=== PATIENT | male | born 1945 | race Caucasian/White ===

== ENCOUNTER 2020-12-11 07:49 | Inpatient (IN) ==
--- OUTSIDE RECORDS SUMMARY | 2020-12-11 07:51 | External Medical Summary | Continuity of Care Document ---
:1945 Author Name Laura Blair, Provider Address Unavailable Unavailable , Care Team Providers Name Role Phone Dia Coles PA-C Unavailable [email or web address] Hair Blair Unavailable [email or web address] Mouna MANCILLA Unavailable Unavailable Unavailable Unavailable Unavailable Problems Type 2 Diabetes Mellitus - Uncomplicated, Controlled (250.00 ) Asthma (493.90) (J45.909) Diverticulitis of colon (562.11) (K57.32) Pharyngitis (462) (J02.9) Hearing loss (389.9) (H91.90) Esophageal reflux (530.81) (K21.9) Cerumen impaction (380.4) (H61.20) Shortness of breath (786.05) (R06.02) Hypercholesterolemia (272.0) (E78.00) Hyperlipidemia (272.4) (E78.5) Eustachian tube dysfunction (381.81) (H69.80) Functional Status Hearing loss Allergies and Adverse Reactions Albuterol Sulfate HFA AERS (Allergy) [place] ction: Hives Xopenex HFA AERO (Allergy) Medications Pulmicort Flexhaler 180 MCG/ACT Inhalati on Aerosol Powder Breath Activated; INHALE 2 PUFFS, BY MOUTH, TWICE DAILY. RINSE MOUTH AFTER USE. Refills: 0 Ciprofloxacin HCl - 500 MG Oral Tablet; TAKE 1 TABLET EVERY 12 HOURS FOR 10 DAYS. NICHOLAS Coles Start: 01-Mar-2011 Quantity: 20 Refills: 0 metroNIDAZOLE 500 MG Oral Tablet; TAKE 1 TABLET 3 time s daily NICHOLAS Coles Start: 01-Mar-2011 Quantity: 30 Refills: 0 Procedures History of Bladder Surgery Status: Compl eted History of Wrist Surgery Status: Complet ed History of Foot Surgery Status: Complete d Immunizations Influenza 1 On: 15-Aug-2010 16:19 Lot #: [id number], SANOFI PASTEUR Family History Mother Family history of Acute Myocardial Infarction (V17.3) Status : Active Family history of CABG Status: Active Brother Family history of Acute Myocardial Infarction (V17.3) Status : Active Family history of Acute Myocardial Infarction (V17.3) Status : Active Family history of Hypertension (V17.49) Status: Active Father Family history of Cancer Status: Active Plan of Treatment Planned Observations Planned Goals not documented Results No Known Results Results not documented Encounters Appointment; Vascular, Studies SC1 14-May-2019 8:45 Encounter Diagnosis: Problem not documented
--- OUTSIDE RECORDS SUMMARY | 2020-12-11 07:51 | External Medical Summary | Continuity of Care Document ---
:1945 Author Name Laura Blair, Provider Address Unavailable Unavailable , Care Team Providers Name Role Phone Dia Coles PA-C Unavailable [email or web address] Hair Blair Unavailable [email or web address] Mouna MANCILLA Unavailable Unavailable Unavailable Unavailable Unavailable Problems Eustachian tube dysfunction (381.81) (H69.80) Hyperlipidemia (272.4) (E78.5) Hypercholesterolemia (272.0) (E78.00) Cerumen impaction (380.4) (H61.20) Hearing loss (389.9) (H91.90) Pharyngitis (462) (J02.9) Diverticulitis of colon (562.11) (K57.32) Asthma (493.90) (J45.909) Type 2 Diabetes Mellitus - Uncomplicated, Controlled (250.00 ) Shortness of breath (786.05) (R06.02) Esophageal reflux (530.81) (K21.9) Functional Status Hearing loss Allergies and Adverse Reactions Albuterol Sulfate HFA AERS (Allergy) [place] ction: Hives Xopenex HFA AERO (Allergy) Medications metroNIDAZOLE 500 MG Oral Tablet; TAKE 1 TABLET 3 time s daily NICHOLAS Coles Start: 01-Mar-2011 Quantity: 30 Refills: 0 Ciprofloxacin HCl - 500 MG Oral Tablet; TAKE 1 TABLET EVERY 12 HOURS FOR 10 DAYS. NICHOLAS Coles Start: 01-Mar-2011 Quantity: 20 Refills: 0 Pulmicort Flexhaler 180 MCG/ACT Inhalati on Aerosol Powder Breath Activated; INHALE 2 PUFFS, BY MOUTH, TWICE DAILY. RINSE MOUTH AFTER USE. Refills: 0 Procedures History of Bladder Surgery Status: Compl eted History of Wrist Surgery Status: Complet ed History of Foot Surgery Status: Complete d Immunizations Influenza 1 On: 15-Aug-2010 16:19 Lot #: [id number], SANOFI PASTEUR Family History Mother Family history [...]
--- NOTE | 2020-12-11 08:05 | Emergency Department Note ---
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 Stevenson sent him to the hospital to be admitted. He states Dr. Stevenson wants to start him on medications in the hospital for 3 days and then wants to cardiovert him. Home Medications Medication Instructions Recorded Confirmed Type albuterol 2 mcg INHALATION LD 12/11/20 12/11/20 History apixaban [Eliquis] 5 mg PO Q12H 12/11/20 12/11/20 History atorvastatin 80 mg PO HS 12/11/20 12/11/20 History glipizide 5 mg PO BID 12/11/20 12/11/20 History metformin 1,000 mg PO BIDM 12/11/20 12/11/20 History metoprolol succinate 50 mg PO DAILY 12/11/20 12/11/20 History omeprazole 20 mg PO 0600 12/11/20 12/11/20 History Allergies Allergy/AdvReac Type Severity Reaction Status Date / Time No Known Allergies Allergy Mild Unverified 03/27/07 09:44 Past Med/Surg History Medical History (Updated 12/11/20 @ 08:35 by Maurice Cavazos) Atrial flutter HLD (hyperlipidemia) No pertinent family history Surgical History (Updated 12/11/20 @ 08:04 by Maurice Cavazos) No pertinent past surgical history Social History Smoking Status: Never smoker Feels Safe at Home: Yes Review of Systems A total of 10 systems reviewed and were otherwise negative Physical Exam Vital Signs: Vital Signs - 24 hr 12/11/20 07:52 12/11/20 08:04 12/11/20 08:09 Temperature 36.3 C L Temperature Source Oral Pulse Rate 114 H 110 H Respiratory Rate 20 25 H Blood Pressure 150/85 H 132/80 Blood Pressure Blanca n 106 97 Pulse Oximetry 96 97 Oxygen Delivery Me thod Room Air Room Air Sepsis Recent Feve r Within 48 Hours No Sepsis New/Unexpla ined Change in Men marimar Status No Sepsis Action Take n by Nursing No Action Required Physical Exam: Physical Exam GENERAL: He is oriented to person, place, and time. He appears well-developed and well-nourished. He does not appear distressed. HENT: Exam performed. - Head: Normocephalic and atraumatic. - Right Ear: External ear normal. No mastoid tenderness. - Left Ear: External ear normal. No mastoid tenderness. - Mouth/Throat: The oropharynx is clear and moist. No trismus in the jaw. No dental abscesses or uvula swelling. No oropharyngeal exudate or tonsillar abscesses. EYES: Conjunctivae and EOM are normal. Pupils are equal, round, and reactive to light. Right eye exhibits no discharge. Left eye exhibits no discharge. No scleral icterus. NECK: Normal range of motion. Neck supple. No JVD present. No spinous process tenderness present. No carotid bruit present. No rigidity. No tracheal deviation and normal range of motion present. No Brudzinski's sign and no Kernig's sign noted. CV: Normal rate, irregular rhythm, normal heart sounds and intact distal pulses. There is no peripheral edema. Palpable radial pulses bue. PULM/CHEST: Effort normal and breath sounds normal. No respiratory distress. No stridor. He has no wheezes. He has no rales. - Chest Wall: He exhibits no tenderness. ABD: The abdomen is soft. Bowel sounds are normal. He has no distension. No mass is present. There is no tenderness. There is no rebound, no guarding, no Lindsay's sign and no tenderness at McBurney's point. Rovsig negative. MUSC/SKEL: Normal range of motion. There is no peripheral edema, tenderness or deformity. LYMPH: No cervical adenopathy. NEURO: He is alert and oriented to person, place, and time. He has normal strength. No cranial nerve deficit or sensory deficit. Coordination and gait normal. GCS eye subscore is 4. GCS verbal subscore is 5. GCS motor subscore is 6. Cerebellar tests wnl. SKIN: Skin is warm and dry. He is not diaphoretic. PSYCH: He has a normal mood and affect. Behavior is normal. Judgment and thought content normal. Course Course 0756: The patient was evaluated in room A10. A complete history and physical exam was performed. Cardiac monitoring: An order was placed for continuous cardiac monitoring. The monitor shows a rate of 110 with atrial flutter rhythm 0832: Vital signs stable. Patient refusing chest x-ray. Discussed with Ward Hu states to admit to Dr. Mcdonough Medical Decision Making Laboratory Data Result diagrams: 12/11/20 08:07 12/11/20 08:07 Lab Results 12/11/20 Range/Units 08:07 WBC 8.39 (4.8-10.8) K/uL RBC 4.61 L (4.7-6.1) M/uL Hgb 12.5 L (14.0-18.0) g/dL Hct 39.6 L (42-52) % MCV 85.9 (80-100) fL MCH 27.1 (25-34) pg MCHC 31.6 L (32-36) g/dL RDW Std Deviation 54.3 H (36.4-46.3) fL RDW Coeff of Levi 17.4 H (11.5-14.5) % Plt Count 259 (130-400) K/uL MPV 9.7 (7.4-10.4) fL Immature Gran % (Auto) 0.1 % Neut % (Auto) 58.1 % Lymph % (Auto) 30.2 % [place] % (Auto) 7.6 % Eos % (Auto) 3.6 % Baso % (Auto) 0.4 % Neut # (Auto) 4.88 (1.4-6.5) K/uL Lymph # (Auto) 2.53 (1.2-3.4) K/uL [place] # (Auto) 0.64 H (0.11-0.59) K/uL Eos # (Auto) 0.30 (0-0.5) K/uL Baso # (Auto) 0.03 (0-0.2) K/uL Immature Gran # (Auto) 0.01 (0.00-0.02) K/uL ECG Data Indication: palpitations Rate (beats per minute): 109 Rhythm: atrial flutter Findings: no ST depression, no ST elevation and no prolonged QT MDM Narrative 0756: The patient was evaluated in room A10. A complete history and physical exam was performed. Cardiac monitoring: An order was placed for continuous cardiac monitoring. The monitor shows a rate of 110 with atrial flutter rhythm 0832: Vital signs stable. Patient refusing chest x-ray. Discussed with Ward Hu states to admit to Dr. Mcdonough Impression & Plan Atrial flutter Discharge Plan Visit Data Chief Complaint: Cardiac Assessment Stated Complaint: HEART FLUTTER,DOC REF ED Provider: Maurice Cavazos Discharge Problem: Atrial flutter Patient Disposition: Admitted As Inpatient Forms Stand Alone Forms: [facility] Prescriptions Prescriptions: No Action atorvastatin 80 mg tablet 80 mg PO HS RF: 0 metoprolol succinate 50 mg tablet extended release 24 hr 50 mg PO DAILY RF: 0 omeprazole 20 mg capsule,delayed release(DR/EC) 20 mg PO 0600 RF: 0 albuterol 90 mcg/actuation Aerosol 2 mcg INHALATION LD RF: 0 metformin 500 mg tablet extended release 24 hr 1,000 mg PO BIDM RF: 0 glipizide 5 mg tablet 5 mg PO BID RF: 0 Eliquis 5 mg tablet 5 mg PO Q12H RF: 0 Referrals Referrals: Jaylen Cain MD [Primary Care Provider] - Discharge Problem: Atrial flutter Qualifiers: Atrial flutter type: unspecified Qualified Code(s): I48.92 - Unspecified atrial flutter
[2020-12-11 08:17] LABS: Basophils # (auto) 0.03 K/uL (0-0.2); Basophils % (auto) 0.4 %; Eosinophils % (auto) 3.6 %; Hematocrit (blood only) 39.6 % (42-52); Hemoglobin 12.5 g/dL (14.0-18.0); Immature Granulocytes # (auto) 0.01 K/uL (0.00-0.02); Immature Granulocytes % (auto) 0.1 %; Lymphocytes # (auto) 2.53 K/uL (1.2-3.4); Lymphocytes % (auto) 30.2 %; Mean Corpuscular Hemoglobin 27.1 pg (25-34); Mean Corpuscular Hgb Conc 31.6 g/dL (32-36); Mean Corpuscular Volume 85.9 fL (80-100); Mean Platelet Volume 9.7 fL (7.4-10.4); Monocytes # (auto) 0.64 K/uL (0.11-0.59); Monocytes % (auto) 7.6 %; Neutrophils # (auto) 4.88 K/uL (1.4-6.5); Neutrophils % (auto) 58.1 %; Platelet Count 259 K/uL (130-400); RDW Coefficient of Variation 17.4 % (11.5-14.5); RDW Standard Deviation 54.3 fL (36.4-46.3); Red Blood Count 4.61 M/uL (4.7-6.1); White Blood Count 8.39 K/uL (4.8-10.8)
[2020-12-11 08:38] LABS: BUN Creatinine Ratio 19.2 (10-20); Blood Urea Nitrogen 20 mg/dl (7-18); Calcium 10.2 mg/dl (8.5-10.1); Carbon Dioxide 24 mmol/L (21-32); Chloride 111 mmol/L (98-107); Creatinine Clr Calc Pharmacy 65.7 ml/min; Est GFR (African American) 78.1; Est GFR (Non-African American) 67.4; Glucose 176 mg/dl (70-99); Lipase 70 U/L (73-393); Potassium 3.8 mmol/L (3.5-5.1); Sodium 143 mmol/L (136-145)
[2020-12-11 08:43] LABS: Troponin I < 0.015 ng/ml (0-0.045)
[2020-12-11] MEDS ORDERED: POTASSIUM CHLORIDE CRTAB 20 MEQ TABCR PO STA (08:50)
--- NOTE | 2020-12-11 09:04 | History & Physical Report ---
Date of Service December 11, 2020 Assessment & Plan (1) BOWMAN (dyspnea on exertion): (2) CAD (coronary artery disease): (3) COPD (chronic obstructive pulmonary disease): (4) T2DM (type 2 diabetes mellitus): (5) HTN (hypertension): Mr. Alfonso presents for admission for planned Sotalol loading and possible DC cardioversion due to symptomatic atrial flutter with RVR will admit to tele and initiate Sotalol 80mg po bid continues telemetry monitoring along with daily ECG's to follow QT interval all other outpatient meds will be continued including Eliquis (6) Atrial flutter with rapid ventricular response: History of Present Illness Chief Complaint: symptomatic atrial fibrillation with rvr Primary Care Provider: Jaylen Cain MD Mr. Alfonso is a very pleasant 75-year-old gentleman who follows with myself as an outpatient for CAD and PAF. Since his last evaluation with me in October his dyspnea has been unchanged. He did undergo to dobutamine stress echocardiogram which came back nonischemic. He has been compliant with all his meds. He continues to deny chest pain, palpitations, lightheadedness, dizziness or syncope. He has never missed a dose of his Eliquis. PAST MEDICAL HISTORY: 1.Coronary artery disease status post CABG x 3 with a ZAMARRIPA to the LAD, vein graft to the obtuse marginal and vein graft to the posterior descending artery. 2.Postoperative atrial fibrillation status post cardioversion. 3.Paroxysmal atrial flutter status post cardioversion. 4.Hypertension Allergies Allergy/AdvReac Type Severity Reaction Status Date / Time No Known Allergies Allergy Mild Unverified 12/11/20 08:37 Home Medications Medication Instructions Recorded Confirmed Type albuterol sulfate [ProAir HFA] 1 inh INHALATION QID PRN 12/11/20 12/11/20 History apixaban [Eliquis] 5 mg PO Q12H 12/11/20 12/11/20 History aspirin [Aspir-81] 81 mg PO DAILY 12/11/20 12/11/20 History atorvastatin 80 mg PO HS 12/11/20 12/11/20 History glipizide 5 mg PO BID 12/11/20 12/11/20 History metformin 1,000 mg PO BIDM 12/11/20 12/11/20 History metoprolol succinate 50 mg PO DAILY 12/11/20 12/11/20 History omeprazole 20 mg PO 0600 12/11/20 12/11/20 History Past Med/Surg History Medical History (Updated 12/12/20 @ 10:34 by Noah Stevenson DO) Atrial flutter CAD (coronary artery disease) status post CABG x 3 with a ZAMARRIPA to the LAD, vein graft to the obtuse marginal and vein graft to the posterior descending artery. COPD (chronic obstructive pulmonary disease) Diabetic peripheral angiopathy GERD (gastroesophageal reflux disease) HLD (hyperlipidemia) HTN (hypertension) PAF (paroxysmal atrial fibrillation) T2DM (type 2 diabetes mellitus) Surgical History History of cardioversion History of colonoscopy History of coronary artery bypass graft x 3 CABG x 3 with a ZAMARRIPA to the LAD, vein graft to the obtuse marginal and vein graft to the posterior descending artery. History of cystoscopy History of foot surgery R History of meniscectomy of right knee Family History Father , 76 Cancer Brother Myocardial infarction, Onset Age: 46 Mother CHF (congestive heart failure) @ 88 Social History Smoking Status: Former smoker Tobacco Type: Cigarettes and Cigars Years Smoked: 15; Smoking End Date: 1989; Hx Alcohol Use: No Hx Substance Use: No Preferred Language: German Communication Ability: Effective Packing Inspector Required: No Beliefs That Will Affect Care: None marital status: Current Living Situation: Spouse Other Information That Helps Us Care for You: No Feels Safe at Home: Yes Safety Concerns: Feels Safe At This Time Assistive Devices: None Assistive Devices Comment: Hearing aids not with patient Review of Systems Review of Systems: All systems reviewed & are unremarkable except as noted in HPI & below Physical Exam Physical Exam: General: Awake, alert and oriented x 3. No acute distress. HEENT: Normocephalic, atraumatic. Pupils equal, round and reactive to light and accommodation. Extraocular muscles are intact. Anicteric sclera. Moist mucous membranes. Neck: No JVD. No bruit. Cardiovascular: irregularly irregular, unable to appreciate murmur, rub or gallop. Pulmonary: Clear to auscultation bilaterally. No rales, rhonchi, or wheezing. Abdomen: Bowel sounds x 4, soft. No rebound, guarding or tenderness. No organomegaly. Extremities: No clubbing, cyanosis or edema. +2 pedal pulses bilaterally. Skin: Warm and dry. Results & Data Results & Data ([facility]) Vital Signs (Past 12 Hours) Vital Signs Temp Pulse Resp BP Pulse Ox 12/11/20 08:31 108 H 20 12/11/20 08:30 100 H 23 140/84 12/11/20 08:09 110 H 25 H 132/80 12/11/20 08:04 97 12/11/20 07:52 36.3 C L 114 H 20 150/85 H 96 Laboratory Results - last 24 hr 12/11/20 12/11/20 12/11/20 08:07 08:07 08:07 WBC 8.39 RBC 4.61 L Hgb 12.5 L Hct 39.6 L MCV 85.9 MCH 27.1 MCHC 31.6 L RDW Std Deviation 54.3 H RDW Coeff of Levi 17.4 H Plt Count 259 MPV 9.7 Immature Gran % (Auto) 0.1 Neut % (Auto) 58.1 Lymph % (Auto) 30.2 [place] % (Auto) 7.6 Eos % (Auto) 3.6 Baso % (Auto) 0.4 Neut # (Auto) 4.88 Lymph # (Auto) 2.53 [place] # (Auto) 0.64 H Eos # (Auto) 0.30 Baso # (Auto) 0.03 Immature Gran # (Auto) 0.01 Sodium 143 Potassium 3.8 Chloride 111 H Carbon Dioxide 24 Anion Gap 7.0 BUN 20 H Creatinine 1.06 Est Cr Clr Drug Dosing 65.7 Est GFR ( Amer) 78.1 Est GFR (Non-Af Amer) 67.4 BUN/Creatinine Ratio 19.2 Glucose 176 H Calcium 10.2 H Magnesium 1.8 Troponin I < 0.015 Lipase 70 L TSH 1.910
[2020-12-11 09:16] LABS: Magnesium 1.8 mg/dl (1.8-2.4); Thyroid Stimulating Hormone 1.91 uIu/ml (0.300-4.500)
--- NOTE | 2020-12-11 10:08 | Electrocardiogram Report ---
Test Reason : Blood Pressure : / mmHG Vent. Rate : 109 BPM Atrial Rate : 264 BPM P-R Int : 000 ms QRS Dur : 098 ms QT Int : 330 ms P-R-T Axes : 085 038 083 degrees QTc Int : 444 ms Atrial flutter with variable A-V block Nonspecific ST and T wave abnormality Abnormal ECG When compared with ECG of 07-APR-2018 08:37, Atrial flutter has replaced Sinus rhythm Vent. rate has increased BY 40 BPM Nonspecific T wave abnormality now evident in Lateral leads Confirmed by Angelo Mcgowan ([id number]) on 12/11/2020 10:08:05 AM Referred By: Noah Stevenson Confirmed By:Angelo Mcgowan
[2020-12-11] MEDS ORDERED: GLUCOSE 40% GEL 15 GM TUBE PO PRN (10:31)
[2020-12-11] MEDS ORDERED: MAGNESIUM HYDROXIDE SUSP 30 ML UDC PO PRN (10:31)
[2020-12-11] MEDS ORDERED: CARBOHYDRATES FOR HYPOGLYCEMIA PO PRN (10:31)
[2020-12-11] MEDS ORDERED: DEXTROSE 50% 50 ML SYRINGE IV PRN (10:31)
[2020-12-11] MEDS ORDERED: ONDANSETRON INJ 2 MG/ML 2 ML VIAL IV PRN (10:31)
[2020-12-11] MEDS ORDERED: GLUCOSE 10 TABS/TUBE PO PRN (10:31)
[2020-12-11] MEDS ORDERED: ACETAMINOPHEN 325 MG TAB PO PRN (10:31)
[2020-12-11] MEDS ORDERED: POLYETHYLENE (MIRALAX) 17 GM PACK PO PRN (10:31)
[2020-12-11] MEDS ORDERED: GLUCAGON FOR INJ 1 MG VIAL SQ PRN (10:31)
[2020-12-11] MEDS ORDERED: ALUMINUM/MAGNESIUM SUSP 30 ML UDC PO PRN (10:31)
[2020-12-11] MEDS ORDERED: ALBUTEROL HFA 8 GM INHALER INH PRN (10:45)
[2020-12-11] MEDS: POTASSIUM CHLORIDE CRTAB 20 MEQ TABCR PO SCH (11:16)
[2020-12-11] MEDS: SOTALOL HCL 80 MG TAB PO SCH ×2 (11:16→20:05)
[2020-12-11] MEDS: INSULIN GLARGINE SOLOSTAR 100 UNITS/ML 3 ML PEN SC SCH ×2 (11:49→20:58)
[2020-12-11] MEDS: INSULIN ASPART 100 UNITS/ML 3 ML PEN SC SCH ×3 (11:49→20:58)
[2020-12-11] MEDS: APIXABAN 5 MG TABLET PO SCH (20:05)
[2020-12-11] MEDS: ATORVASTATIN 40 MG TAB PO SCH (20:05)
[2020-12-12] MEDS ORDERED: PANTOprazole 40 MG TAB PO SCH ×2 (06:00→10:20)
[2020-12-12 08:04] LABS: Estimated Average Glucose 177 mg/dl; Hemoglobin A1C 7.8 % (4.5-5.6)
[2020-12-12] MEDS: INSULIN ASPART 100 UNITS/ML 3 ML PEN SC SCH (08:10)
[2020-12-12] MEDS: SOTALOL HCL 80 MG TAB PO SCH ×2 (08:40→19:43)
[2020-12-12] MEDS: POTASSIUM CHLORIDE CRTAB 20 MEQ TABCR PO SCH (08:40)
[2020-12-12] MEDS: ASPIRIN 81 MG ECTAB PO SCH (08:40)
[2020-12-12] MEDS: APIXABAN 5 MG TABLET PO SCH ×2 (08:40→19:42)
[2020-12-12] MEDS: INSULIN GLARGINE SOLOSTAR 100 UNITS/ML 3 ML PEN SC SCH (09:43)
--- NOTE | 2020-12-12 10:30 | Electrocardiogram Report ---
Test Reason : Blood Pressure : / mmHG Vent. Rate : 087 BPM Atrial Rate : 250 BPM P-R Int : 000 ms QRS Dur : 082 ms QT Int : 376 ms P-R-T Axes : 268 052 082 degrees QTc Int : 452 ms Atrial flutter with variable A-V block Diffuse Nonspecific T wave abnormality Abnormal ECG When compared with ECG of 11-DEC-2020 08:01, HR has decreased BY 21 BPM Confirmed by Angelo Mcgowan ([id number]) on 12/12/2020 10:30:03 AM Referred By: Noah Stevenson Confirmed By:Angelo Mcgowan
--- NOTE | 2020-12-12 10:35 | Cardiology Progress Note ---
Date of Service December 12, 2020 Assessment & Plan (1) BOWMAN (dyspnea on exertion): (2) CAD (coronary artery disease): (3) COPD (chronic obstructive pulmonary disease): (4) T2DM (type 2 diabetes mellitus): (5) HTN (hypertension): Mr. Alfonso presents for admission for planned Sotalol loading and possible DC cardioversion due to symptomatic atrial flutter with RVR tolerating sotalol well. No significant ventricular ectopy on telemetry monitoring. QTC stable at 452 ms. Continue sotalol loading. We will plan for DC cardioversion in the a.m. N.p.o. after midnight. all other outpatient meds will be continued including Eliquis (6) Atrial flutter with rapid ventricular response: Admission and Anticipated Discharge Date Admission Date: December 11, 2020 Subjective Patient seen and examined, chart reviewed. No events overnight. He has been refusing Accu-Cheks. Denies chest pain, shortness of breath, palpitations, lightheadedness, dizziness or syncope. Telemetry reviewed: Atrial flutter at 3-1 Review of Systems Review of Systems: All systems reviewed & are unremarkable except as noted in HPI & below Physical Exam Physical Exam: General: Awake, alert and oriented x 3. No acute distress. HEENT: Normocephalic, atraumatic. Pupils equal, round and reactive to light and accommodation. Extraocular muscles are intact. Anicteric sclera. Moist mucous membranes. Neck: No JVD. No bruit. Cardiovascular: irregularly irregular, unable to appreciate murmur, rub or gallop. Pulmonary: Clear to auscultation bilaterally. No rales, rhonchi, or wheezing. Abdomen: Bowel sounds x 4, soft. No rebound, guarding or tenderness. No organomegaly. Extremities: No clubbing, cyanosis or edema. +2 pedal pulses bilaterally. Skin: Warm and dry. Results & Data ([facility]) Vital Signs (Past 12 Hours) Vital Signs Temp Pulse Pulse Resp BP Pulse Ox 12/12/20 08:09 36.6 C 86 18 124/68 96 12/12/20 07:00 99 H 12/12/20 04:51 36.9 C 93 H 18 118/72 93 12/12/20 00:04 36.4 C L 54 L 18 139/66 95
[2020-12-12] MEDS: metFORMIN HCL ER 500 MG TABCR PO SCH (17:51)
[2020-12-12] MEDS: ATORVASTATIN 40 MG TAB PO SCH (19:43)
[2020-12-12] MEDS: PANTOprazole 40 MG TAB PO SCH (21:49)
[2020-12-13 06:39] LABS: BUN Creatinine Ratio 37.6 (10-20); Calcium 9.8 mg/dl (8.5-10.1); Creatinine Clr Calc Pharmacy 81.2 ml/min; Est GFR (African American) 97.4
--- NOTE | 2020-12-13 08:33 | Electrocardiogram Report ---
Test Reason : Blood Pressure : / mmHG Vent. Rate : 085 BPM Atrial Rate : 255 BPM P-R Int : 000 ms QRS Dur : 084 ms QT Int : 356 ms P-R-T Axes : 261 044 080 degrees QTc Int : 423 ms Atrial flutter with variable A-V block Nonspecific T wave abnormality Abnormal ECG When compared with ECG of 12-DEC-2020 06:45, No significant change was found Confirmed by Angelo Mcgowan ([id number]) on 12/13/2020 8:33:14 AM Referred By: Noah Stevenson Confirmed By:Angelo Mcgowan
[2020-12-13] MEDS ORDERED: fentaNYL citrate 100 MCG/2 ML VIAL ONE (08:47)
[2020-12-13] MEDS ORDERED: MIDAZOLAM HCL 5 MG/ML 1 ML VIAL ONE (08:47)
--- NOTE | 2020-12-13 08:52 | Cardiology Progress Note ---
Date of Service December 13, 2020 Assessment & Plan (1) BOWMAN (dyspnea on exertion): (2) CAD (coronary artery disease): (3) COPD (chronic obstructive pulmonary disease): (4) T2DM (type 2 diabetes mellitus): (5) HTN (hypertension): Patient has tolerated sotalol load well. Status post successful DC cardioversion on 12/13/2020. QTC status post cardioversion 427 ms. We will plan on getting even sotalol dose early at 1500. Check EKG at 1600 and as long as no significant QTC prolongation will DC to home. No other medication changes will be made except for discontinuation of metoprolol in favor of sotalol. My office will call for follow-up with me in 1 month. (6) Atrial flutter with rapid ventricular response: Admission and Anticipated Discharge Date Admission Date: December 11, 2020 Subjective Patient seen and examined, chart reviewed. States he feels well status post cardioversion. Denies chest pain, shortness of breath, palpitations, lightheadedness, dizziness or syncope. Telemetry reviewed: Atrial flutter overnight with normal sinus rhythm status post cardioversion Review of Systems Review of Systems: All systems reviewed & are unremarkable except as noted in HPI & below Physical Exam Physical Exam: General: Awake, alert and oriented x 3. No acute distress. HEENT: Normocephalic, atraumatic. Pupils equal, round and reactive to light and accommodation. Extraocular muscles are intact. Anicteric sclera. Moist mucous membranes. Neck: No JVD. No bruit. Cardiovascular: irregularly irregular, unable to appreciate murmur, rub or gallop. Pulmonary: Clear to auscultation bilaterally. No rales, rhonchi, or wheezing. Abdomen: Bowel sounds x 4, soft. No rebound, guarding or tenderness. No organomegaly. Extremities: No clubbing, cyanosis or edema. +2 pedal pulses bilaterally. Skin: Warm and dry. Results & Data ([facility]) Vital Signs (Past 12 Hours) Vital Signs Temp Pulse Pulse Resp BP Pulse Ox 12/13/20 08:00 36.9 C 89 16 123/72 93 12/13/20 04:41 36.5 C 94 H 18 105/59 L 94 12/13/20 00:00 36.4 C L 90 18 109/70 93 12/12/20 23:17 104 H
--- NOTE | 2020-12-13 08:53 | Pre Anesthesia Assessment ---
Date of Service December 13, 2020 Pre Sedation Assessment Vital Signs Temp Pulse Pulse Resp BP Pulse Ox 12/13/20 08:00 36.9 C 89 16 123/72 93 12/13/20 04:41 36.5 C 94 H 18 105/59 L 94 12/13/20 00:00 36.4 C L 90 18 109/70 93 12/12/20 23:17 104 H 12/12/20 19:17 36.7 C 95 H 18 112/75 93 12/12/20 16:00 36.7 C 89 18 121/72 96 12/12/20 15:00 99 H 12/12/20 11:57 36.8 C 102 H 18 135/51 L 96 Pre-Sedation Airway Assessment Smoking Status: Former smoker Notes The planned sedation has been discussed with the patient. Informed Consent was obtained. I have identified the patient, determined the appropriateness of sedation and have assessed the patient immediately prior to the procedure. All medicine(s) and interventions are by my order.
--- NOTE | 2020-12-13 08:53 | History & Physical Bridge Note ---
Date of Service December 13, 2020 History & Physical Bridge Note I have examined the patient, reviewed the History & Physical and in the interval since the performance of the History & Physical I have noted the following changes of clinical significance: no changes noted
--- NOTE | 2020-12-13 09:21 | Post Anesthesia Assessment ---
Date of Service December 13, 2020 Post Sedation Assessment Vital Signs Temp Pulse Pulse Resp BP Pulse Ox 12/13/20 09:18 100 H 18 122/67 100 12/13/20 09:15 109 H 18 115/88 100 12/13/20 09:13 107 H 18 133/106 H 100 12/13/20 09:10 103 H 18 128/99 100 12/13/20 09:05 103 H 18 127/91 98 12/13/20 08:59 36.5 C 95 H 16 123/87 12/13/20 08:00 36.9 C 89 16 123/72 93 12/13/20 04:41 36.5 C 94 H 18 105/59 L 94 12/13/20 00:00 36.4 C L 90 18 109/70 93 12/12/20 23:17 104 H 12/12/20 19:17 36.7 C 95 H 18 112/75 93 12/12/20 16:00 36.7 C 89 18 121/72 96 12/12/20 15:00 99 H 12/12/20 11:57 36.8 C 102 H 18 135/51 L 96 Discharge Sedation Level of Care: Fast Track Phase II Post Sedation Plan On clinical assessment, the patient appears to have tolerated the sedation without complications. Patient is recovering as anticipated. Patient will continue to be monitored by nursing and may be discharged when sedation discharge criteria are met per below protocol. Upon Completions of procedure up to 15 minutes continue every 5 minute vital signs and the P.A.R. score; then discharge to a Phase I or Fast Track to Phase II per the following guidelines: * Discharge Patient to appropriate Phase II area if PAR is 8 or greater or return to pre- procedure baseline. The post - procedure orders will be as directed. * If PAR score is less than 8 or not return to pre-procedure baseline then patient will follow Phase I monitoring till PAR is reached for Phase II. The Phase I may be done in procedure room or may call to secure a Phase I area. * If naloxone or flumazenil are used for reversal, hold in Phase I for continued monitoring from when last reversal dose was given for a minimum of 60 minutes or longer pending the nurse and/or physician discretion of patient condition before discharge to Phase II. Please call the Sedation Physician to re-evaluate and complete post-note for discharge to Phase II area. Do NOT discharge from procedure sedation or Phase 1 until post- sedation evaluation note is complete by procedure /sedation MD Sedation Discharge Instructions to be given to the patient at discharge to home.
--- NOTE | 2020-12-13 09:22 | Cardioversion ---
Date of Service December 13, 2020 Electrical Cardioversion Rpt Electrical Cardioversion Report Informed consent obtained. Patient prepped. Adequate moderate sedation achieved with a total of 75 mcg of fentanyl and 2 mg of Versed. 360 J of synchronized energy was delivered with successful conversion to normal sinus rhythm. Patient tolerated well. Start time: 909 Stop time: 916 Plan: We will obtain the post cardioversion EKG. Patient will transferred back to telemetry
[2020-12-13] MEDS: POTASSIUM CHLORIDE CRTAB 20 MEQ TABCR PO SCH (10:19)
[2020-12-13] MEDS: SOTALOL HCL 80 MG TAB PO SCH (10:19)
[2020-12-13] MEDS: APIXABAN 5 MG TABLET PO SCH (10:19)
[2020-12-13] MEDS: PANTOprazole 40 MG TAB PO SCH (10:19)
[2020-12-13] MEDS: metFORMIN HCL ER 500 MG TABCR PO SCH (10:20)
[2020-12-13] MEDS: ASPIRIN 81 MG ECTAB PO SCH (10:20)
--- NOTE | 2020-12-13 10:26 | Discharge Summary ---
Date of Service December 13, 2020 Admission HPI Per Admitting Provider Mr. Alfonso is a very pleasant 75-year-old gentleman who follows with myself as an outpatient for CAD and PAF. Since his last evaluation with me in October his dyspnea has been unchanged. He did undergo to dobutamine stress echocardiogram which came back nonischemic. He has been compliant with all his meds. He continues to deny chest pain, palpitations, lightheadedness, dizziness or syncope. He has never missed a dose of his Eliquis. PAST MEDICAL HISTORY: 1.Coronary artery disease status post CABG x 3 with a ZAMARRIPA to the LAD, vein graft to the obtuse marginal and vein graft to the posterior descending artery. 2.Postoperative atrial fibrillation status post cardioversion. 3.Paroxysmal atrial flutter status post cardioversion. 4.Hypertension Admission Exam Per Admitting Provider General: Awake, alert and oriented x 3. No acute distress. HEENT: Normocephalic, atraumatic. Pupils equal, round and reactive to light and accommodation. Extraocular muscles are intact. Anicteric sclera. Moist mucous membranes. Neck: No JVD. No bruit. Cardiovascular: irregularly irregular, unable to appreciate murmur, rub or gallop. Pulmonary: Clear to auscultation bilaterally. No rales, rhonchi, or wheezing. Abdomen: Bowel sounds x 4, soft. No rebound, guarding or tenderness. No organomegaly. Extremities: No clubbing, cyanosis or edema. +2 pedal pulses bilaterally. Skin: Warm and dry. Principal Diagnosis Symptomatic atrial flutter with rapid ventricular response Discharge Exam General: Awake, alert and oriented x 3. No acute distress. HEENT: Normocephalic, atraumatic. Pupils equal, round and reactive to light and accommodation. Extraocular muscles are intact. Anicteric sclera. Moist mucous membranes. Neck: No JVD. No bruit. Cardiovascular: Regular. Positive S-4. Normal S-1 and S-2. No S-3. No murmurs or rubs. Pulmonary: Clear to auscultation B/L. No rales, rhonchi or wheezing Abdomen: Bowel sounds x 4, soft. No rebound, guarding or tenderness. No organomegaly. Extremities: No clubbing, cyanosis or edema. +2 pedal pulses bilaterally. Skin: Warm and dry. Discharge Data Allergies Allergy/AdvReac Type Severity Reaction Status Date / Time No Known Allergies Allergy Mild Unverified 12/11/20 08:37 Consultations 12/11/20 08:29 ED Decision to Admit Stat 12/11/20 08:48 Consult Cardiology Routine 12/11/20 10:31 Consult Case Management - Discharge Planning Routine Procedures Performed Operation Date: 12/13/20 09:00 Actual Procedures p Cardioversion - Noah Stevenson DO Hospital Course (1) BOWMAN (dyspnea on exertion): (2) CAD (coronary artery disease): (3) COPD (chronic obstructive pulmonary disease): (4) T2DM (type 2 diabetes mellitus): (5) HTN (hypertension): Patient has tolerated sotalol load well. Status post successful DC cardioversion on 12/13/2020. QTC status post cardioversion 427 ms. We will plan on getting even sotalol dose early at 1500. Check EKG at 1600 and as long as no significant QTC prolongation will DC to home. No other medication changes will be made except for discontinuation of metoprolol in favor of sotalol. My office will call for follow-up with me in 1 month. (6) Atrial flutter with rapid ventricular response: Total Time Total Time Spent Total Time Spent (In Minutes): 36 Total Time Includes: Examination of the Patient, Discharge Planning and Medication Reconciliation Discharge Plan Discharge Items Patient Disposition: Home - Self-Care Reason For Visit: AFLUTTER, REQUIRING RHYTHM CONTROL SOTALOL LOADING Discharge Diagnosis: Atrial flutter status post sotalol load Activity: Per Instructions section Lifting: Gradually increase as tolerated Bathing: No limitations Sexual Activity: When tolerated Exercise/Sports: Rest today Driving/Machine Use: Resume 1 day after discharge Non-emergency contact: Primary Care Provider Call non-emergency contact if: you have any medication questions Follow-up/Referrals: Jaylen Cain MD [Primary Care Provider] - Diet: Carb Consistent or DM2 Addtl Attending Provider Instructions: My office will call to schedule follow-up with me in 1 month. Pending Studies at Discharge: Yes Studies:: ECG Stand-Alone Forms: My [facility] [employer], Smoking Cessation Medications and DC Order Prescriptions: New sotalol 80 mg Tablet 80 mg PO BID Qty: 60 RF: 0 Continued atorvastatin 80 mg tablet 80 mg PO HS RF: 0 omeprazole 20 mg capsule,delayed release(DR/EC) 20 mg PO 0600 RF: 0 metformin 500 mg tablet extended release 24 hr 1,000 mg PO BIDM RF: 0 glipizide 5 mg tablet 5 mg PO BID RF: 0 Eliquis 5 mg tablet 5 mg PO Q12H RF: 0 aspirin 81 mg Tablet,Delayed Release (Dr/Ec) 81 mg PO DAILY RF: 0 albuterol sulfate [ProAir HFA] 90 mcg/actuation Hfa Aerosol Inhaler 1 inh INHALATION QID PRN (Reason: sob/wheezing) RF: 0 Discontinued metoprolol succinate 50 mg tablet extended release 24 hr 50 mg PO DAILY RF: 0 Discharge Orders: Discharge Order (Routine); Ordered 12/13/20 Ordered By: Noah Anne/Other Patient Handouts: High Blood Sugar (Hyperglycemia), Hypoglycemia (Low Blood Sugar), Managing Type 2 Diabetes, Exercise to Manage Your Blood Sugar, 5 Steps for Eating Healthier Admission Data Admit Date/Time: 12/11/20 09:02 Attending Provider: Noah Stevenson Admit Provider: Noah Stevenson Primary Care Provider: Jaylen Cain Other Providers: Walker Soto ; Noah Stevenson
[2020-12-13] MEDS ORDERED: SOTALOL HCL 80 MG TAB PO ONE (15:00)
--- NOTE | 2020-12-13 16:43 | Electrocardiogram Report ---
Test Reason : Blood Pressure : / mmHG Vent. Rate : 087 BPM Atrial Rate : 087 BPM P-R Int : 296 ms QRS Dur : 096 ms QT Int : 362 ms P-R-T Axes : 045 021 060 degrees QTc Int : 435 ms Sinus rhythm with 1st degree A-V block Possible Old Inferior infarct (cited on or before 13-DEC-2020) Abnormal ECG When compared with ECG of 13-DEC-2020 09:33, No significant change was found Confirmed by Angelo Mcgowan ([id number]) on 12/13/2020 4:43:39 PM Referred By: Noah Stevenson Confirmed By:Angelo Mcgowan
== END 2020-12-13 17:00 | disposition home or self-care (01) | DRG 310 ==
LOC: ED 07:49 → 2S 09:02

== ENCOUNTER 2022-04-10 06:55 | Observation (INO) ==
--- NOTE | 2022-04-09 08:47 | Anesthesiology Consultation ---
Date of Service April 09, 2022 Assessment & Plan (1) Encounter for pre-operative examination: COVID screening: Per assessment on 04/09: No known COVID-19 positive contacts or current COVID-19 related symptoms. Travel screen negative. Patient vaccinated. Preop Covid test done 04/05 ([facility]) was negative. At anesthesiologist discretion AM day of procedure if updated preop Covid testing needed due to preop Covid testing being 5 days old. Chart Review Chart Review: medical data entry clerk initiated History Surgery Operation Date: 04/10/22 08:00 Proposed Procedures p Aflutter Ablation w/Mapping w/Anesthesia - Daphney Green, Height/Weight Height: 5 ft 5 in Weight: 99.79 kg Allergies Allergy/AdvReac Type Severity Reaction Status Date / Time valacyclovir AdvReac Unknown Unknown Verified 04/10/22 07:22 empagliflozin AdvReac Vomiting Verified 04/10/22 07:22 [From [employer]] Medications Home Medications Medication Instructions Recorded Confirmed Last Taken albuterol sulfate 90 mcg/actuation 1 inh INHALATION QID PRN 12/11/20 04/09/22 Unknown aerosol inhaler (ProAir HFA) apixaban 5 mg tablet (Eliquis) 5 mg PO Q12H 12/11/20 04/10/22 04/09/22 22:00 aspirin 81 mg tablet,delayed 81 mg PO HS 12/11/20 04/09/22 12/10/20 release atorvastatin 80 mg tablet 80 mg PO HS 12/11/20 04/09/22 12/10/20 metformin 500 mg tablet,extended 1,000 mg PO BIDM 12/11/20 04/09/22 12/10/20 release 24 hr omeprazole 20 mg capsule,delayed 20 mg PO 0600 12/11/20 04/09/22 12/11/20 release sotalol 80 mg tablet 80 mg PO BID #60 tab 12/13/20 04/09/22 Unknown isosorbide mononitrate 30 mg 60 mg PO QAM 02/05/22 04/09/22 Unknown tablet,extended release 24 hr metoprolol succinate 100 mg 100 mg PO QAM 02/05/22 04/09/22 Unknown tablet,extended release 24 hr Past Medical History Medical History Atrial flutter CAD (coronary artery disease) s/p CABG x3 (2015) Follows with Dr. Stevenson Diabetic peripheral angiopathy GERD (gastroesophageal reflux disease) HLD (hyperlipidemia) PAF (paroxysmal atrial fibrillation) Past Family History Family History Father , 76 Cancer Brother Myocardial infarction, Onset Age: 46 Mother CHF (congestive heart failure) @ 88 Past Surgical History Surgical History History of cardiac cath x2 (most recent 2020 > medical management recommended) History of cardioversion History of colonoscopy History of coronary artery bypass graft x 3 CABG x3 (ZAMARRIPA-LAD, vein graft-OM, vein graft- PDA) - 2015 History of cystoscopy History of foot surgery Right History of meniscectomy of right knee Social History Smoking Status: Former smoker tobacco type: cigars Do You Dip or Chew Tobacco: No Smoking End Date: Quit cigars 30 years ago Hx Alcohol Use: No Hx Substance Use: No substance use type: does not use Physical Exam Vital Signs Last Vital Signs Temp 37.0 C 04/10/22 07:18 Pulse 106 H 04/10/22 07:18 Resp 17 04/10/22 07:18 BP 137/96 04/10/22 07:18 Pulse Ox 96 04/10/22 07:18 Testing Laboratory Results 04/05/22 WBC 12.58 H/H 11.3/37.2 PLATELETS 265 SODIUM 141 POTASSIUM 4.4 CHLORIDE 105 CO2 25 BUN 17 CREATININE 0.8 GLUCOSE 271 HGBA1C 9.2% (EAG 217) Electrocardiogram Date: 03/11/22 Atrial flutter with variable AV block at 67 bpm. Echocardiogram Date: 03/15/22 EF 55-59%. No regional motion abnormality. Mildly increased concentric LV wall thickness. Mild LAE. Mild AV sclerosis. Mild AR. Mild MR. A flutter with ventricular rate of 111 bpm present during echocardiogram study. Stress Test Date: 10/23/20 Type: DSE Stress echo negative for inducible ischemia. Stress EKG with no evidence of ischemia. 112% MPHR. Cardiac Catheterization Date: 03/16/21 Coronary angiogram shows severe multivessel CAD. Proximal CX is occluded (distal vessel supplied by a patent OM graft), mid LAD has 90% stenosis (distal vessel supplied by a patent ZAMARRIPA), mid RCA is occluded with bridging and left to right collaterals (RCA graft is occluded). Grafts: ZAMARRIPA-LAD is patent and supplies distal LAD with left to right collaterals; SVG-OM is patent and supplies the iliamna vessel and left to right collaterals; SVG-RCA is occluded. Angiogram explains the patient's worsening angina. There are no good percutaneous options for RCA revascularization. Recommend optimizing medical therapy for ischemic heart disease.
[2022-04-10] MEDS ORDERED: PROPOFOL IV EMULSION 10 MG/ML 100 ML VIAL IV ONE (06:57)
[2022-04-10] MEDS ORDERED: MIDAZOLAM HCL 1 MG/ML 2ML VIAL ONE (07:23)
[2022-04-10] MEDS ORDERED: fentaNYL citrate 100 MCG/2 ML VIAL ONE ×2 (07:23→08:55)
[2022-04-10] MEDS ORDERED: PHENYLEPHRINE 100MCG/ML 5ML SYR ONE (07:39)
[2022-04-10] MEDS ORDERED: LIDOCAINE 2% 2 ML VIAL/AMP(20MG/ML) INFIL ONE (07:39)
[2022-04-10] MEDS ORDERED: ePHEDrine sulfate 50 MG/ML AMP ONE (07:39)
--- NOTE | 2022-04-10 07:56 | History & Physical Bridge Note ---
Date of Service April 10, 2022 History & Physical Bridge Note I have examined the patient, reviewed the History & Physical and in the interval since the performance of the History & Physical I have noted the following changes of clinical significance: no changes noted
[2022-04-10] MEDS ORDERED: HEPARIN (PORCINE) 1000 UNIT/ML 10 ML (CATH LAB USE ONLY) ONE (08:16)
[2022-04-10] MEDS ORDERED: PHENYLEPHRINE HCL 10 MG/ML VIAL ONE (09:18)
[2022-04-10] MEDS ORDERED: ICU PROTOCOL FOR HYPERGLYCEMIA PRN ×2 (10:48→12:22)
--- NOTE | 2022-04-10 11:21 | Anesthesiology Progress Note ---
Date of Service April 10, 2022 Anesthesia Post Procedure Vital Signs Vital Signs: Temp Pulse Resp BP Pulse Ox 04/10/22 07:18 37.0 C 106 H 17 137/96 96 Transfer of Care Handoff Completed per policy Notes Mental Status: alert / awake / arousable Patient Amnestic to Procedure: Yes Nausea / Vomiting: adequately controlled Pain: adequately controlled Airway Patency, RR, SpO2: stable & adequate BP & HR: stable & adequate Hydration State: stable & adequate Anesthetic Complications: no major complications apparent Notes: arterial bleeding noted when EP physician attempted to remove femoral sheath. vascular surgery consulted and will evaluate the patient in the ICU. No bleeding noted with pressure occlusive device in place. +DP pulses obtainable by dopler. Patient is accepted in the ICU and will be evaluated by vascular surgeon for possible repair. Type and screen ordered.
[2022-04-10 11:57] LABS: Hemoglobin 10.7 g/dL (14.0-18.0); Mean Corpuscular Hemoglobin 26.1 pg (25-34); Mean Corpuscular Volume 87.8 fL (80-100); Mean Platelet Volume 9.7 fL (7.4-10.4); Platelet Count 255 K/uL (130-400); RDW Coefficient of Variation 16.9 % (11.5-14.5); RDW Standard Deviation 53.6 fL (36.4-46.3); White Blood Count 11.15 K/uL (4.8-10.8)
[2022-04-10 12:16] LABS: Partial Thromboplastin Time 26.3 Seconds (21.0-31.0)
[2022-04-10] MEDS ORDERED: SODIUM CHLORIDE 0.9% 1000ML 500 ML IV ONE (12:27)
[2022-04-10 12:32] LABS: Mean Corpuscular Hgb Conc 29.7 g/dL (32-36)
--- NOTE | 2022-04-10 12:32 | Critical Care Consultation ---
Date of Consultation April 10, 2022 Assessment & Plan (1) Arterial bleed, intraoperative: (2) Anemia: (3) Atrial fibrillation with rapid ventricular response: Impression: 76-year-old male status post A. fib ablation today with right femoral pseudoaneurysm/hemorrhage. Vascular surgery consulted and currently holding pressure. He has dropped his hemoglobin 2 points. Recommendations: 1. Arterial hemorrhage: Management per vascular surgery. We will see if this can be managed with conservative measures. If not may require exploration and surgical repair. If the bleeding stops, follow-up ultrasound should be performed in a few weeks to exclude pseudoaneurysm formation. 2. Anemia: Continue serial hemoglobin and hematocrit. Check fibrinogen and INR. 3. Diabetes: Glycemic control per ICU protocol. 4. Atrial fibrillation/flutter: Status post ablation. Per discussion with EP, they would like to start anticoagulation soon as possible. This will need to be coordinated with vascular surgery. Ideally EP would like anticoagulation started within 12 hours although I am not sure that is feasible depending on the patient's bleeding issues. 5. Continue atorvastatin metoprolol omeprazole for now. Will continue to follow in the ICU pending resolution of the patient's bleeding issues. Patient is critically ill at this point time with significant possibility of clinical deterioration and loss of life or limb. Total of 49 minutes critical care time was spent in evaluation management and coordination of care for this History of Present Illness Attending Physician: Daphney Green, History of Present Illness Asked by cardiology to assist in evaluation of this management with femoral pseudoaneurysm status post EP procedure today. History is obtained from discussion with the flight service specialist as well as interview the patient and reviewed electronic medical record. Patient is 76-year-old male with a history of atrial fibrillation. He went to the [employer] today for an ablation procedure. Initial access was attempted on the right. Arterial access was obtained and there was concern about a pseudoaneurysm. Pressure was held and access was converted to the left. The procedure was completed. He continued to have significant bleeding from the access on the right. A FemoStop was applied. Vascular surgery was consulted and the patient was transferred to the ICU. He has been hemodynamically stable. He continues to have bleeding. I assessed the patient on arrival to the ICU. Vascular surgery was present and holding pressure at the groin. He has dropped his hemoglobin a small amount. His blood pressure is soft but per the patient his blood pressure at home typically runs in the 80-90 systolic range. Allergies Allergy/AdvReac Type Severity Reaction Status Date / Time valacyclovir AdvReac Unknown Unknown Verified 04/10/22 07:22 empagliflozin AdvReac Vomiting Verified 04/10/22 07:22 [From [employer]] Home Medications Medication Instructions Recorded Confirmed Type albuterol sulfate 90 mcg/actuation 1 inh INHALATION QID PRN 12/11/20 04/09/22 History aerosol inhaler (ProAir HFA) apixaban 5 mg tablet (Eliquis) 5 mg PO Q12H 12/11/20 04/10/22 History aspirin 81 mg tablet,delayed 81 mg PO HS 12/11/20 04/09/22 History release atorvastatin 80 mg tablet 80 mg PO HS 12/11/20 04/09/22 History metformin 500 mg tablet,extended 1,000 mg PO BIDM 12/11/20 04/09/22 History release 24 hr omeprazole 20 mg capsule,delayed 20 mg PO 0600 12/11/20 04/09/22 History release sotalol 80 mg tablet 80 mg PO BID #60 tab 12/13/20 04/09/22 Rx isosorbide mononitrate 30 mg 60 mg PO QAM 02/05/22 04/09/22 History tablet,extended release 24 hr metoprolol succinate 100 mg 100 mg PO QAM 02/05/22 04/09/22 History tablet,extended release 24 hr Patient History Medical History Atrial flutter CAD (coronary artery disease) s/p CABG x3 (2015) Follows with Dr. Stevenson Diabetic peripheral angiopathy GERD (gastroesophageal reflux disease) HLD (hyperlipidemia) PAF (paroxysmal atrial fibrillation) Surgical History History of cardiac cath x2 (most recent 2020 > medical management recommended) History of cardioversion History of colonoscopy History of coronary artery bypass graft x 3 CABG x3 (ZAMARRIPA-LAD, vein graft-OM, vein graft- PDA) - 2016 History of cystoscopy History of foot surgery Right History of meniscectomy of right knee Family History Father , 76 Cancer Brother Myocardial infarction, Onset Age: 46 Mother CHF (congestive heart failure) @ 88 Social History (Updated 04/09/22 @ 09:06 by Nathalia Otoole RN) Smoking Status: Former smoker Tobacco Type: Cigarettes and Cigars Years Smoked: 15; Cigarettes Per Day: NONE; Smoking End Date: Quit cigars 30 years ago; Second Hand Exposure: No; Do You Dip or Chew Tobacco: No; Hx Alcohol Use: No Hx Substance Use: No Preferred Language: Irish Communication Ability: Effective It Project Lead Required: No Beliefs That Will Affect Care: None marital status: Current Living Situation: Spouse current occupational status: retired Other Information That Helps Us Care for You: No Feels Safe at Home: Yes Safety Concerns: Feels Safe At This Time Assistive Devices: Denture - Upper, Glasses and Hearing Aid - Bilateral Review of Systems Review of Systems: Please refer to admission H&P Physical Exam Physical Exam: General: Awake, alert and oriented x 3. No acute distress. HEENT: Normocephalic, atraumatic. Pupils equal, round and reactive to light and accommodation. Extraocular muscles are intact. Anicteric sclera. Moist mucous membranes. Neck: No JVD. No bruit. Cardiovascular: irregularly irregular, unable to appreciate murmur, rub or g allop. Pulmonary: Clear to auscultation bilaterally. No rales, rhonchi, or wheezing. Abdomen: Bowel sounds x 4, soft. No rebound, guarding or tenderness. No organomegaly. Extremities: No clubbing, cyanosis or edema. +2 pedal pulses bilaterally. Vascular surgery currently holding pressure on the right groin. The left groin has venous and arterial access catheters in place Skin: Warm and dry. Results & Data Results & Data ([facility]) Vital Signs (Past 12 Hours) Vital Signs Temp Pulse Pulse Resp BP BP Pulse Ox 04/10/22 12:00 76 25 H 106/72 94 04/10/22 11:55 80 20 100/69 93 04/10/22 11:50 80 17 93/70 L 94 04/10/22 11:46 79 16 104/73 95 04/10/22 11:40 77 14 100/71 96 04/10/22 11:30 79 17 109/71 95 04/10/22 11:20 79 16 140/79 95 04/10/22 11:15 36.4 C L 79 16 103/80 95 04/10/22 07:18 37.0 C 106 H 17 137/96 96 Critical Care Results & Data Vital Signs (Past 12 Hours) Vital Signs Temp Pulse Pulse Resp BP BP Pulse Ox 04/10/22 12:00 76 25 H 106/72 94 04/10/22 11:55 80 20 100/69 93 04/10/22 11:50 80 17 93/70 L 94 04/10/22 11:46 79 16 104/73 95 04/10/22 11:40 77 14 100/71 96 04/10/22 11:30 79 17 109/71 95 04/10/22 11:20 79 16 140/79 95 04/10/22 11:15 36.4 C L 79 16 103/80 95 04/10/22 07:18 37.0 C 106 H 17 137/96 96 Lab & Micro Results (Past 24 Hours) RBC 4.10 M/uL (4.7-6.1) L 04/10/22 WBC 11.15 K/uL (4.8-10.8) H 04/10/22 Hgb 10.7 g/dL (14.0-18.0) L 04/10/22 Hct 36.0 % (42-52) L 04/10/22 MCV 87.8 fL (80-100) 04/10/22 MCH 26.1 pg (25-34) 04/10/22 MCHC Pending 04/10/22 RDW Standard Deviation 53.6 fL (36.4-46.3) H 04/10/22 RDW Coefficient of Variation 16.9 % (11.5-14.5) H 04/10/22 Plt Count 255 K/uL (130-400) 04/10/22 MPV 9.7 fL (7.4-10.4) 04/10/22 No Data to Display No Data to Display RT Ventilator Mngmt (Last Documented) Ventilator Ordered Settings Respiratory Rate 25 04/10/22 12:00 Ventilator - PT Measurements Respiratory Rate 25 Coding Level of Care Code Critical Care 1st 30-74 mins Diagnoses Arterial bleed, intraoperative I97.418 Anemia D64.9 Atrial fibrillation with rapid ventricular response I48.91
--- NOTE | 2022-04-10 12:39 | Consultation ---
Date of Consultation April 10, 2022 Assessment & Plan (1) Arterial bleed, intraoperative: Pt was seen by Dr Arana today, who held manual pressure to R groin site for 45 min after removal of sheath. Bleeding controlled, and pressure dressing placed. Defer management of remaining L groin vascular access sites to analytical lab technician team. Will reeval pt in office in 1 week with arterial US to r/o AVF/pseudoaneurysm. Pt and aware. Please call if needed. History of Present Illness Reason for Consultation: bleeding from R groin access Attending Physician: Daphney Green DO History of Present Illness 76 yo m with hx of atrial arrhythmias, GERD, hyperlipidemia, CAD with hx of CABG x3, admitted with bleeding from R groin sheath after undergoing cardiac ablation earlier today, seen in consultation for possible intervention on R groin site. Pt underwent successful ablation, however, was noted to have significant bleeding from R groin sheath site, so was brought to ICU with femstop in place. Pt states he took his last dose of eliquis last night. Pt currently admits some mild nausea and BL groin discomfort. Denies chest pain, SOB, abd pain, lower extremity/foot pain, other complaints. Allergies Allergy/AdvReac Type Severity Reaction Status Date / Time valacyclovir AdvReac Unknown Unknown Verified 04/10/22 07:22 empagliflozin AdvReac Vomiting Verified 04/10/22 07:22 [From Jardiance] Home Medications Medication Instructions Recorded Confirmed Type albuterol sulfate 90 mcg/actuation 1 inh INHALATION QID PRN 12/11/20 04/09/22 History aerosol inhaler (ProAir HFA) apixaban 5 mg tablet (Eliquis) 5 mg PO Q12H 12/11/20 04/10/22 History aspirin 81 mg tablet,delayed 81 mg PO HS 12/11/20 04/09/22 History release atorvastatin 80 mg tablet 80 mg PO HS 12/11/20 04/09/22 History metformin 500 mg tablet,extended 1,000 mg PO BIDM 12/11/20 04/09/22 History release 24 hr omeprazole 20 mg capsule,delayed 20 mg PO 0600 12/11/20 04/09/22 History release sotalol 80 mg tablet 80 mg PO BID #60 tab 12/13/20 04/09/22 Rx isosorbide mononitrate 30 mg 60 mg PO QAM 02/05/22 04/09/22 History tablet,extended release 24 hr metoprolol succinate 100 mg 100 mg PO QAM 02/05/22 04/09/22 History tablet,extended release 24 hr Patient History Medical History Atrial flutter CAD (coronary artery disease) s/p CABG x3 (2015) Follows with Dr. Stevenson Diabetic peripheral angiopathy GERD (gastroesophageal reflux disease) HLD (hyperlipidemia) PAF (paroxysmal atrial fibrillation) Surgical History History of cardiac cath x2 (most recent 2020 > medical management recommended) History of cardioversion History of colonoscopy History of coronary artery bypass graft x 3 CABG x3 (ZAMARRIPA-LAD, vein graft-OM, vein graft- PDA) - 2015 History of cystoscopy History of foot surgery Right History of meniscectomy of right knee Family History Father , 76 Cancer Brother Myocardial infarction, Onset Age: 46 Mother CHF (congestive heart failure) @ 88 Social History Smoking Status: Former smoker Tobacco Type: Cigarettes and Cigars Years Smoked: 15; Cigarettes Per Day: NONE; Smoking End Date: Quit cigars 30 years ago; Second Hand Exposure: No; Do You Dip or Chew Tobacco: No; Hx Alcohol Use: No Hx Substance Use: No Preferred Language: Sinhala Communication Ability: Effective Airline Hostess Required: No Beliefs That Will Affect Care: None marital status: Current Living Situation: Spouse current occupational status: retired Other Information That Helps Us Care for You: No Feels Safe at Home: Yes Safety Concerns: Feels Safe At This Time Assistive Devices: Denture - Upper, Glasses and Hearing Aid - Bilateral Review of Systems Review of Systems: All systems reviewed & are unremarkable except as noted in HPI & below Physical Exam Constitutional: WD/WN, vitals as above + obese and cooperative; not in distress ENMT: Ears: no hearing impairment Neck: trachea midline Respiratory: normal respiratory effort, lungs clear to auscultation Auscultation: + diminished lung sounds Cardiovascular: Rate/Rhythm: regular rate and regular rhythm Vessels: femoral pulses present, dorsalis pedis pulses present and radial pulses present; + abnormal peripheral pulses Extremities: normal capillary refill and + vascular access device (L groin sheaths noted, no bleeding. R groin with significant bleeding) Gastrointestinal (Abdomen): Inspection/Auscultation: abdomen normal to inspection and normal bowel sounds Percussion/Palpation: abdomen soft; abdomen nontender Musculoskeletal: no cyanosis or clubbing, extremities motor strength 5/5 Skin: no rashes, warm and dry Neurologic: moves all extremities and awake; no focal motor deficits and not confused Psychiatric: A+Ox3, euthymic affect Results & Data ([facility]) Vital Signs (Past 12 Hours) Vital Signs Temp Pulse Pulse Resp BP BP Pulse Ox 04/10/22 12:00 76 25 H 106/72 94 04/10/22 11:55 80 20 100/69 93 04/10/22 11:50 80 17 93/70 L 94 04/10/22 11:46 79 16 104/73 95 04/10/22 11:40 77 14 100/71 96 04/10/22 11:30 79 17 109/71 95 04/10/22 11:20 79 16 140/79 95 04/10/22 11:15 36.4 C L 79 16 103/80 95 04/10/22 07:18 37.0 C 106 H 17 137/96 96
[2022-04-10] MEDS: NORMOSOL-R 1,000 ML IV SCH (13:08)
[2022-04-10 13:29] LABS: Hemoglobin 10.2 g/dL (14.0-18.0)
[2022-04-10 13:53] LABS: Fibrinogen 320 mg/dl (184-400); INR 1.1 (0.9-1.1); Prothrombin Time 11.9 Seconds (9.0-12.0)
--- NOTE | 2022-04-10 14:18 | Operative Report ---
Post Operative Report Pre & Post Diagnosis pre: atrial flutter post: SR Operation Date: 04/10/22 08:00 <No data on this case meets the specified criteria> I identified the patient and participated in the time-out.: Yes Procedure Operation Date: 04/10/22 08:00 Actual Procedures p EPS + Ablation for SVT Flutter - DO jamee Oropeza 3D Mapping (Carto) - DO jamee Oropeza Ultrasound Vascular Access - Daphney Green DO Surgeon Daphney Green, Puttying And Calking Supervisor none Estimated Blood Loss 25 Findings Consistent with Post-Op Diagnosis Specimens none Complications left femoral AVF Description of Procedure see official report I attest to the content of the Intraoperative Record and any orders documented therein. Any exceptions are noted below.
[2022-04-10 16:15] LABS: Hematocrit (blood only) 34.5 % (42-52); Hemoglobin 10.3 g/dL (14.0-18.0); Mean Corpuscular Hgb Conc 29.9 g/dL (32-36); Mean Corpuscular Volume 87.1 fL (80-100); Mean Platelet Volume 9.8 fL (7.4-10.4); Platelet Count 247 K/uL (130-400); RDW Coefficient of Variation 16.8 % (11.5-14.5); RDW Standard Deviation 53.3 fL (36.4-46.3); Red Blood Count 3.96 M/uL (4.7-6.1); White Blood Count 14.84 K/uL (4.8-10.8)
[2022-04-10] MEDS ORDERED: ACETAMINOPHEN 500 MG TAB PO PRN (16:25)
[2022-04-10] MEDS: traMADol HCL 50 MG TABLET PO PRN (16:41)
--- NOTE | 2022-04-10 17:15 | Communication Note ---
Date of Service: April 10, 2022 pt seen just now; left groin looks good; vitals stable; the right groin sheaths just pulled and manual compression being held. ok to restart eliquis stop metoprolol continue sotalol ok to give a diet
[2022-04-10] MEDS ORDERED: fentaNYL citrate 100 MCG/2 ML VIAL IV STA (19:03)
[2022-04-10] MEDS: SOTALOL HCL 80 MG TAB PO SCH (19:14)
[2022-04-10] MEDS: APIXABAN 5 MG TABLET PO SCH (19:15)
[2022-04-10 20:58] LABS: Hematocrit (blood only) 32.4 % (42-52); Hemoglobin 9.7 g/dL (14.0-18.0)
[2022-04-10] MEDS ORDERED: ATORVASTATIN 40 MG TAB PO SCH (21:00)
[2022-04-10] MEDS ORDERED: ASPIRIN 81 MG ECTAB PO SCH (21:00)
[2022-04-11 05:56] LABS: Basophils # (auto) 0.02 K/uL (0-0.2); Basophils % (auto) 0.2 %; Eosinophils # (auto) 0.22 K/uL (0-0.5); Eosinophils % (auto) 2.1 %; Hematocrit (blood only) 31.6 % (42-52); Hemoglobin 9.6 g/dL (14.0-18.0); Immature Granulocytes # (auto) 0.03 K/uL (0.00-0.02); Immature Granulocytes % (auto) 0.3 %; Lymphocytes # (auto) 3.17 K/uL (1.2-3.4); Mean Corpuscular Hemoglobin 26.7 pg (25-34); Mean Corpuscular Hgb Conc 30.4 g/dL (32-36); Mean Platelet Volume 9.4 fL (7.4-10.4); Monocytes # (auto) 0.99 K/uL (0.11-0.59); Monocytes % (auto) 9.4 %; Neutrophils # (auto) 6.14 K/uL (1.4-6.5); Platelet Count 209 K/uL (130-400); RDW Coefficient of Variation 16.8 % (11.5-14.5); RDW Standard Deviation 54.2 fL (36.4-46.3); Red Blood Count 3.59 M/uL (4.7-6.1); White Blood Count 10.57 K/uL (4.8-10.8)
[2022-04-11 06:05] LABS: BUN Creatinine Ratio 24.7 (10-20); Calcium 9.6 mg/dl (8.5-10.1); Creatinine Clr Calc Pharmacy 94.3 ml/min; Est GFR (Non-African American) 88.8 ml/min; Magnesium 1.4 mg/dl (1.7-2.4); Phosphorus 2.5 mg/dl (2.5-4.9)
[2022-04-11] MEDS ORDERED: PANTOprazole 40 MG TAB PO SCH (06:30)
[2022-04-11 06:57] LABS: Fibrinogen 367 mg/dl (184-400); INR 1.1 (0.9-1.1); Prothrombin Time 11.6 Seconds (9.0-12.0)
--- NOTE | 2022-04-11 07:20 | Critical Care Progress Note ---
Date of Service April 11, 2022 Assessment & Plan (1) Arterial bleed, intraoperative: (2) Anemia: (3) Atrial fibrillation with rapid ventricular response: Plan: Impression: 76-year-old male status post A. fib ablation today with right femoral pseudoaneurysm/hemorrhage. Bleeding resolved with pressure. Recommendations: 1. Arterial hemorrhage: Appears resolved. Will defer to vascular surgery to take dressings down. Can get the patient out of bed and advance his diet as tolerated. 2. Anemia: Stable. No indication for transfusion currently. 3. Diabetes: Glycemic control per ICU protocol. Can restart metformin 24 hours after IV contrast administration 4. Atrial fibrillation/flutter: Status post ablation. Tolerating anticoagulation currently 5. Continue atorvastatin metoprolol omeprazole for now. Patient's critical care issues have resolved. Critical care services will sign off. Disposition per cardiology. Discussed with bedside critical care nurse and on multidisciplinary rounds Admission and Anticipated Discharge Date Admission Date: April 10, 2022 Subjective Patient seen and examined. EMR reviewed. Discussed with critical care RADHA. The patient is done well overnight. He is remained hemodynamically stable. His hemoglobin is hovered between 9 and 10. No evidence of bleeding. He is complaining of some generalized back pain associated with the ICU bed Review of Systems Review of Systems: All systems reviewed & are unremarkable except as noted in Subjective Physical Exam Physical Exam: General: Awake, alert and oriented x 3. No acute distress. HEENT: Normocephalic, atraumatic. Pupils equal, round and reactive to light and accommodation. Extraocular muscles are intact. Anicteric sclera. Moist mucous membranes. Neck: No JVD. No bruit. Cardiovascular: irregularly irregular, unable to appreciate murmur, rub or gallop. Pulmonary: Clear to auscultation bilaterally. No rales, rhonchi, or wheezing. Abdomen: Bowel sounds x 4, soft. No rebound, guarding or tenderness. No organomegaly. Extremities: No clubbing, cyanosis or edema. +2 pedal pulses bilaterally. Groin dressings in place. Mild ecchymoses. Thighs are not tense. Skin: Warm and dry. Results & Data Results & Data ([facility]) Vital Signs (Past 12 Hours) Vital Signs Temp Pulse Pulse Resp BP Pulse Ox 04/11/22 07:00 76 19 136/73 93 04/11/22 06:00 74 18 118/71 96 04/11/22 05:00 74 17 128/83 95 04/11/22 04:00 36.8 C 76 19 144/84 H 94 04/11/22 03:00 74 15 123/95 94 04/11/22 02:00 77 20 127/80 95 04/11/22 01:00 73 16 120/71 94 04/11/22 00:00 36.8 C 73 15 117/64 98 04/10/22 23:18 36.7 C 76 18 109/65 93 04/10/22 22:41 77 04/10/22 22:00 77 17 104/78 93 04/10/22 21:00 80 19 105/67 92 04/10/22 20:00 36.7 C 81 17 115/68 93 04/10/22 19:30 83 18 120/74 96 Critical Care Results & Data Vital Signs (Past 12 Hours) Vital Signs Temp Pulse Pulse Resp BP Pulse Ox 04/11/22 07:00 76 19 136/73 93 04/11/22 06:00 74 18 118/71 96 04/11/22 05:00 74 17 128/83 95 04/11/22 04:00 36.8 C 76 19 144/84 H 94 04/11/22 03:00 74 15 123/95 94 04/11/22 02:00 77 20 127/80 95 04/11/22 01:00 73 16 120/71 94 04/11/22 00:00 36.8 C 73 15 117/64 98 04/10/22 23:18 36.7 C 76 18 109/65 93 04/10/22 22:41 77 04/10/22 22:00 77 17 104/78 93 04/10/22 21:00 80 19 105/67 92 04/10/22 20:00 36.7 C 81 17 115/68 93 04/10/22 19:30 83 18 120/74 96 Lab & Micro Results (Past 24 Hours) RBC 3.59 M/uL (4.7-6.1) L 04/11/22 WBC 10.57 K/uL (4.8-10.8) 04/11/22 Hgb 9.6 g/dL (14.0-18.0) L 04/11/22 Hct 31.6 % (42-52) L 04/11/22 MCV 88.0 fL (80-100) 04/11/22 MCH 26.7 pg (25-34) 04/11/22 MCHC 30.4 g/dL (32-36) L 04/11/22 RDW Standard Deviation 54.2 fL (36.4-46.3) H 04/11/22 RDW Coefficient of Variation 16.8 % (11.5-14.5) H 04/11/22 Plt Count 209 K/uL (130-400) 04/11/22 MPV 9.4 fL (7.4-10.4) 04/11/22 Neutrophils (%) (Auto) 58.0 % 04/11/22 Lymphocytes (%) (Auto) 30.0 % 04/11/22 Monocytes # (Auto) 0.99 K/uL (0.11-0.59) H 04/11/22 Eosinophils # (Auto) 0.22 K/uL (0-0.5) 04/11/22 Immature Granulocyte % (Auto) 0.3 % 04/11/22 Neutrophils # (Auto) 6.14 K/uL (1.4-6.5) 04/11/22 Lymphocytes # (Auto) 3.17 K/uL (1.2-3.4) 04/11/22 Monocytes # (Auto) 0.99 K/uL (0.11-0.59) H 04/11/22 Eosinophils # (Auto) 0.22 K/uL (0-0.5) 04/11/22 Basophils # (Auto) 0.02 K/uL (0-0.2) 04/11/22 Immature Granulocyte # (Auto) 0.03 K/uL (0.00-0.02) H 04/11/22 Na 139 mmol/L (136-145) 04/11/22 K 4.0 mmol/L (3.5-5.1) 04/11/22 Cl 106 mmol/L (98-107) 04/11/22 CO2 27 mmol/L (21-32) 04/11/22 Anion Gap 6 (3-11) 04/11/22 BUN 18 mg/dl (6-23) 04/11/22 Creatinine 0.73 mg/dl (0.6-1.4) 04/11/22 Estimated GFR ( Amer) 103.0 ml/min 04/11/22 Estimated GFR (Non-Af Amer) 88.8 ml/min 04/11/22 BUN/Creatinine Ratio 24.7 (10-20) H 04/11/22 Glu 101 mg/dl (70-99(Fasting)) H 04/11/22 Ca 9.6 mg/dl (8.5-10.1) 04/11/22 Phosphorus Level 2.5 mg/dl (2.5-4.9) 04/11/22 Mg 1.4 mg/dl (1.7-2.4) L 04/11/22 05:27 04/11/22 Calcium Level 9.6 mg/dl (8.5-10.1) 04/11/22 05:27 04/11/22 Prothromb Time International Ratio 1.1 (0.9-1.1) 04/11/22 05:27 04/11/22 I & O Totals 24 Hours 04/10/22 04/11/22 04/12/22 06:59 06:59 06:59 Intake Total 550 / 550 Output Total 750 / 750 Balance -200 / -200 Cumulative 04/08/22 09:59 thru 04/11/22 04:00 Intake Total 550 Output Total 750 Balance -200 RT Ventilator Mngmt (Last Documented) Ventilator Ordered Settings Respiratory Rate 19 04/11/22 07:00 Ventilator - PT Measurements Respiratory Rate 19 Coding Level of Care Code 23430 Subseq Hosp Care Lvl 2 Diagnoses Arterial bleed, intraoperative I97.418 Anemia D64.9 Atrial fibrillation with rapid ventricular response I48.91
[2022-04-11] MEDS: SOTALOL HCL 80 MG TAB PO SCH (07:32)
[2022-04-11] MEDS: MAGNESIUM SULFATE / D5W 1 GM/100 ML BAG IV SCH ×3 (07:32→12:15)
[2022-04-11] MEDS: APIXABAN 5 MG TABLET PO SCH (07:33)
[2022-04-11] MEDS: traMADol HCL 50 MG TABLET PO PRN (07:42)
[2022-04-11] MEDS ORDERED: metFORMIN HCL ER 500 MG TABCR PO SCH (08:00)
[2022-04-11] MEDS ORDERED: ISOSORBIDE MONO EXTENDED REL 60 MG TABCR PO SCH (09:00)
[2022-04-11] MEDS: NORMOSOL-R 1,000 ML IV SCH (09:51)
--- NOTE | 2022-04-11 12:36 | Cardiology Progress Note ---
Date of Service April 11, 2022 Assessment & Plan (1) S/P ablation of atrial flutter: (2) Arterial bleed, intraoperative: Plan: 76-year-old male status post atrial flutter ablation 04/10/2022 with right groin bleeding complications including AV fistula. Vascular surgery input appreciated. Management of pressure dressing per their discretion. Patient is scheduled for repeat duplex and vascular surgery follow-up in 1 week. Due to low back pain in the setting of recent intraoperative bleeding, recommend stat CT of the abdomen pelvis to exclude retroperitoneal bleed. If CT negative, patient will be discharged to home today with activity restrictions. He will av oid climbing stairs more than 2 times daily for the next 4 days. Instructed to lift no more than 5 pounds over the next 5 days. Continue current cardiovascular medications including sotalol and Eliquis. Admission and Anticipated Discharge Date Admission Date: April 10, 2022 Subjective Patient seen examined the bedside. Atrial flutter ablation performed yesterday with right groin bleeding complications including AV fistula. Vascular surgery consulted who removed sheath and applied pressure for 45 minutes. No further bleeding. Patient complaining of mild bilateral lumbar discomfort this AM. States back pain is unusual for him. Denies chest pain or shortness of breath. Telemetry reveals sinus rhythm. Patient questioning whether metoprolol should be discontinued at this time. Chronically treated with oral anticoagulation and sotalol twice daily. Review of Systems Review of Systems: All systems reviewed & are unremarkable except as noted in Subjective Physical Exam Constitutional: well nourished, + acute distress and + obese Respiratory: normal respiratory effort; no respiratory distress and no labored breathing Auscultation: lungs clear to auscultation bilaterally; no crackles, no rales, no rhonchi and no wheezes Cardiovascular: Rate/Rhythm: regular rate and regular rhythm Heart Sounds: normal S1 and normal S2; no murmur Vessels: femoral pulses present; no JVD and no carotid bruit Extremities: no edema (Right groin pressure dressing in place. No hematoma. Soft right groin bru) Gastrointestinal (Abdomen): Inspection/Auscultation: abdomen normal to inspection and normal bowel sounds; abdomen not distended Percussion/Palpation: abdomen soft; abdomen nontender, no guarding and abdomen not rigid Neurologic: CN's II-XI intact bilaterally and moves all extremities; no focal motor deficits Motor/Sensory: no tremor Psychiatric: A+Ox3, euthymic affect Results & Data ([facility]) Vital Signs (Past 12 Hours) Vital Signs Temp Pulse Pulse Resp BP Pulse Ox 04/11/22 10:08 80 21 112/58 L 90 04/11/22 09:00 36.6 C 80 21 114/68 91 04/11/22 08:08 78 19 123/64 95 04/11/22 08:00 76 04/11/22 07:00 76 19 136/73 93 04/11/22 06:00 74 18 118/71 96 04/11/22 05:00 74 17 128/83 95 04/11/22 04:00 36.8 C 76 19 144/84 H 94 04/11/22 03:00 74 15 123/95 94 04/11/22 02:00 77 20 127/80 95 04/11/22 01:00 73 16 120/71 94
--- NOTE | 2022-04-11 12:38 | CT Scan Report ---
ABDOMEN AND PELVIS CT WITHOUT CONTRAST CT DOSE: 1399.02 mGy.cm HISTORY: Acute low back and generalized abdominal pain with clinical concern for retroperitoneal daisy german. R/O retroperitoneal bleed TECHNIQUE: Multiaxial CT images of the abdomen and pelvis were performed without contrast. A dose lo wering technique was utilized adhering to the principles of ALARA. COMPARISON STUDY: CT abdomen 03/22/2008 FINDINGS: Cardiomegaly with prior median sternotomy. Coronary artery calcifications. Decreased attenuation of t he cardiac blood pool suggestive of anemia. Clear lung bases. No pneumatosis or pneumoperitoneum. The unenhanced spleen, moderately atrophic pancreas and adrenal glands are unremarkable. Trace cholelith iasis. No CT evidence of acute cholecystitis. Unremarkable liver. Mild nonspecific bilateral perinephric stranding. 6 mm nonobstructing calculus of the interpolar left kidney. No ureteral calculi or hydronephrosis. Urinary bladder wall thickening with partial distenti on suggestive of chronic bladder outlet obstruction. Mild prostamegaly. Atherosclerosis of the aorta without aneurysm. There is no lymphadenopathy identified. Mild distal esophageal wall thickening with small hiatal hernia. No bowel obstruction or bowel wall t hickening. Colonic diverticulosis. Moderate fecal retention. Normal appendix. No ascites or mesenteri c inflammation. There is layering hemorrhage within the right inguinal subcutaneous tissues with a he matoma measuring up to 8.0 x 0.9 x 8.0 cm superficial to an surrounding the right common femoral michelle ry and vein. There is no retroperitoneal hematoma identified. Degenerative changes of the spine, pelv is and hips. No destructive bone lesion or acute fracture identified age-indeterminate mild superior endplate compression deformities are noted throughout the lumbar spine which are favored to be chroni c. IMPRESSION: 1. Hemorrhage within the right inguinal soft tissues is noted superficial to and surrounding the femo ral vessels. Curvilinear hematoma measures up to 8 cm. Correlate with recent catheterization history. 2. No retroperitoneal hematoma. 3. No bowel obstruction or bowel wall thickening. Normal appendix. 4. Colonic diverticulosis. 5. Cholelithiasis. 6. Left nephrolithiasis. 7. Additional findings as above. ACT 112: Negative or not required by law. The above report was generated using voice recognition software. It may contain grammatical, syntax o r spelling errors. Electronically signed by: Miguel Angel Austin M.D. 04/11/2022 12:37 PM
[2022-04-11] MEDS ORDERED: METOPROLOL SUCC 50MG EXT REL TAB PO SCH (13:00)
[2022-04-11] MEDS: Patient's ALLERGY Info needs ENTERED SCH ×3 (13:31→14:38)
--- NOTE | 2022-04-11 22:57 | Electrocardiogram Report ---
Test Reason : Blood Pressure : / mmHG Vent. Rate : 079 BPM Atrial Rate : 079 BPM P-R Int : 278 ms QRS Dur : 096 ms QT Int : 388 ms P-R-T Axes : 058 028 074 degrees QTc Int : 444 ms Sinus rhythm with 1st degree A-V block Otherwise normal ECG When compared with ECG of 05-FEB-2022 08:29, No significant change was found Confirmed by Hussain Panda ([id number]) on 04/11/2022 10:57:24 PM Referred By: Daphney Green Confirmed By:Hussain Panda
--- NOTE | 2022-04-17 06:41 | Operative Report (OR) ---
DATE OF PROCEDURE: 04/10/2022. PREOPERATIVE DIAGNOSIS: Atrial flutter. POSTOPERATIVE DIAGNOSES: Atrial flutter plus sinus rhythm and bidirectional block along the cavotricuspid isthmus line. SURGEON: Daphney Green DO ASSISTANTS: None. ANESTHESIA: Monitored anesthetic care administered via anesthesiology. Start time was 8:03, end time 10:27, total of 2 mg of Versed, 200 mcg of fentanyl, 760 mg of propofol. INTRAVENOUS FLUIDS: 300 mL. BLOOD LOSS: 50 mL. URINE OUTPUT: Not applicable. SPECIMENS: None. FINDINGS: See below. DRAINS: None. CONDITION: fair. 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 INDICATIONS: This is a 76-year-old gentleman who has coronary artery disease, status post CABG x3 with a ZAMARRIPA to LAD, SVG to OM, and SVG to PDA, hypertension, hyperlipidemia, diabetes, morbid obesity, PAD, COPD, gastroesophageal reflux disease, history of atrial fibrillation and most recently an atrial flutter. He has a history of a cardioversion in December 2020. He is on sotalol and Eliquis with a CHADS2-VASc score of 5. He had recurrent atrial flutter that was persistent in the past and was recommended an electrophysiology study with flutter ablation. CONSENT: Consent was obtained prior to the patient going into the electrophysiology lab. The patient was explained the risks, benefits, and alternatives to the procedure. Risks include, but are not limited to, sudden cardiac , cardiac arrhythmias, cerebrovascular accident, myocardial infarction, injury to the blood vessels, chamber of the heart, or the [place] electrical system where he would need a permanent pacemaker, bleeding, and infection. The patient expressed understanding and consent was obtained. DESCRIPTION OF PROCEDURE: The patient was brought into electrophysiology lab in a fasting state. He was connected to continuous cardiac monitoring. A time-out was performed to ensure the patient's identity and procedure correctly. He was prepped and draped over the bilateral groins in a normal surgical standard fashion. Monitored anesthetic care was given throughout the procedure for the patient's comfort level. Datto precautions were maintained throughout the procedure. A 10 mL of 1% lidocaine were given in the bilateral groins in a normal surgical standard fashion. Then using the ultrasound guidance and ultimately a micropuncture, venous access was obtained in the following manner. Also of note, on the left femoral vein the arteries were kind of twisted and I had a hard time maneuvering the catheters, so I ultimately ended up using a long 7-[place] SafeSheath for both of the sheaths in the left femoral vein. Of note, I did have a lot of problems getting venous access. The femoral vein was a little bit easier. I was able to get a 7-[place]i sheath that had a halo 20-pole catheter positioned in the right atrium and a second 7-[place] sheath that had a [employer] decapolar coronary sinus FJ catheter positioned in the coronary sinus. I started with the DF curved and then switched out to the FJ. The ablation catheter was an FJ. The right femoral vein I had problems accessing. I used a micropuncture, but the vein and the artery was right on top of each other and ultimately I think at one point I created an AV fistula, but I did eventually have venous access and was able to get an SRO sheath up and the 6-[place]i sheath was swapped out for an SRO sheath. While I was performing the procedure, I did have the rf technician holding pressure over the groin. INTRAOPERATIVE FINDINGS: The atrial flutter cycle length was 253 milliseconds. Pacing halo distal which was pretty much right on the cavotricuspid isthmus line had a PPI of 250 milliseconds with a tachycardia cycle length minus PPI interval of 3 suggesting it is involving the cavotricuspid isthmus. With entraining the tachycardia from the coronary sinus distal, my PPI was 300 milliseconds with a tachycardia cycle length minus PPI of 150 suggesting it is not left sided. I then placed also the ablation catheter on the CTI line and got a PPI of 256 milliseconds giving me a tachycardia cycle length minus PPI of negative 3. Of note, I did also look at the His and marked where the His bundle was with an HV of 71 milliseconds. I then did 3D activation of the atrial flutter to confirm that it involved the CTI and was right-sided. Between the activation map and the entrainment, I then set up to do a cavotricuspid isthmus line. I started my isthmus line at the tricuspid valve, giving a series of radiofrequency carter at 35 da silva. Ultimately, I did break the rhythm back into sinus rhythm and then continued on with my carter until I developed bidirectional block. Post-ablation findings are as follows: [place] interval 243 milliseconds, QRS 76 milliseconds, QT 373 milliseconds. Sinus cycle length 791 milliseconds, AV Wenckebach was 280 milliseconds. AV node ERP was 600/310 and 400/250. Right ventricular ERP 600/260 and 400/230. The atrial ERP was 600/200 and 420/200. Post AH was 185 milliseconds and the post HV was 60 milliseconds. Pacing lateral to the line and measuring medial was 150 milliseconds and pacing medial and measuring lateral was 155 milliseconds. After a successful waiting period, I continued to have demonstrated block along the cavotricuspid isthmus. I was still concerned about the possible AV fistula, so I swapped out the sheath for a long 8-[place] SafeSheath. As I was doing that, when I had just the wire in, I did have bright red arterial blood pushing back at me. Of note, during the whole case though, when we were holding pressure and when we did not hold pressure and the SRO catheter was in, there was no blood coming back. I put the 8-[place] long SafeSheath in over the wire and then there was only a little slight oozing. I called our vascular surgeon who gladly was going to consult and come in and see the patient. So I left the sheath in. The patient was then transferred to the ICU. Ultimately, vascular surgery pulled the right femoral vein sheath and held pressure for over 45 minutes establishing hemostasis. Later my team came in and pulled the left femoral vein sheaths and established hemostasis. IMPRESSION: 1. Typical atrial flutter, status post cavotricuspid isthmus radiofrequency ablation with bidirectional block along the cavotricuspid isthmus. 2. 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 PLAN: Monitor the patient overnight, 12-lead ECG. Continue with Erasto, come down on his metoprolol, and I will see him back in one month's time. Job ID: [id number] [facility]Shawn
== END 2022-04-11 15:53 | disposition home or self-care (01) ==
LOC: EP 06:55 → INTOOBSV 10:50 → 1E 10:50
DX: I48.92 Unspecified atrial flutter; I25.10 Atherosclerotic heart disease of native coronary artery without angina pectoris; Z79.01 Long term (current) use of anticoagulants; Z79.899 Other long term (current) drug therapy; E11.51 Type 2 diabetes mellitus with diabetic peripheral angiopathy without gangrene; Z88.3 Allergy status to other anti-infective agents; K21.9 Gastro-esophageal reflux disease without esophagitis; Z95.1 Presence of aortocoronary bypass graft; D64.9 Anemia, unspecified; I97.418 Intraoperative hemorrhage and hematoma of a circulatory system organ or structure complicating other circulatory system procedure; Z79.84 Long term (current) use of oral hypoglycemic drugs; Z79.82 Long term (current) use of aspirin; Z88.8 Allergy status to other drugs, medicaments and biological substances; E78.5 Hyperlipidemia, unspecified; Z87.891 Personal history of nicotine dependence; I48.0 Paroxysmal atrial fibrillation